=== PATIENT | female | born 1975 | race Caucasian/White ===

== ENCOUNTER 2016-03-27 08:47 | Outpatient (CLI) | payer MEDICAID ==
[2016-03-27] MEDS ORDERED: WATER FOR INJ (PF) 10 ML ONE (10:08)
[2016-03-27] MEDS ORDERED: KINEVAC IV ONE ×3 (10:08→10:20)
[2016-03-27] MEDS ORDERED: WATER FOR INJ (PF) IV ONE (10:15)
[2016-03-27] MEDS ORDERED: WATER FOR INJ (PF) IV SCH (11:00)
--- NOTE | 2016-03-27 12:00 | Nuclear Medicine Report ---
HEPATOBILIARY SCAN: History: Abdominal pain. Comparison: HIDA scan dated 11/08/10. Following the injection of the radionuclide, serial scanning was obtained over the right upper quadrant. Initial imaging of the liver demonstrates a relatively normal activity pattern. Progressive concentration of the radionuclide in the bile ducts, with filling of both the gallbladder and small bowel, is identified within a normal time period. The gallbladder ejection fraction measures 32%. The patient reports these symptoms were reproduced with the infusion of CCK. IMPRESSION: The cystic duct is patent. The gallbladder ejection fraction is borderline decreased measuring 32%. This has decreased from 51% on the previous exam. Symptomatology as described.
== END 2016-03-27 08:48 | disposition home or self-care (01) ==
LOC: NM 08:47
PROVIDERS: ATTEND Family Medicine
DX: R10.11 Right upper quadrant pain (principal)
CPT/HCPCS: 78227; A9537; J2805

== ENCOUNTER 2018-11-06 07:48 | Day surgery (SDC) | payer MEDICAID, OTHER ==
[2018-11-04 11:45] LABS: Hematocrit 37.6 % (30.3-42.9); Hemoglobin 12.6 gm/dl (10.1-14.3); Mean Corpuscular HGB Conc 33 % (30-34); Mean Corpuscular Volume 85 fl (79-97); Platelet Count 253 K/mm3 (140-440); Red Blood Count 4.41 M/mm3 (3.65-5.03)
--- NOTE | 2018-11-04 18:15 | Anesthesia Consultation ---
Anesthesia Consult and Med Hx Date of service: 11/04/18 - Airway Anesthetic Teeth Evaluation: Good ROM Head & Neck: Adequate Mental/Hyoid Distance: Adequate Mallampati Class: Class II Intubation Access Assessment: Good - Pulmonary Exam CTA: Yes - Cardiac Exam Cardiac Exam: RRR - Pre-Operative Health Status ASA Pre-Surgery Classification: ASA2 Proposed Anesthetic Plan: General (Hx of arrhythmia , echo shows normal EF , mild regurg, Stress test done was normal ) - Pulmonary Hx Smoking: Yes (former) Hx Sleep Apnea: Yes (No CPAP) - Central Nervous System Hx Psychiatric Problems: Yes - Gastrointestinal Hx Gastroesophageal Reflux Disease: Yes (Food related) - Hematic Hx Anemia: Yes - Other Systems Hx Alcohol Use: Yes (Occas) Hx Cancer: No Hx Obesity: Yes (BMI= 40)
--- NOTE | 2018-11-06 07:36 | Short Stay Summary ---
Short Stay Documentation Date of service: 11/06/18 Narrative H&P: 43-year-old with a history of dysfunctional uterine bleeding. The patient attempted medical management without resolution of her symptoms. An endometrial biopsy was performed with findings of benign endometrium. Pelvic ultrasound was unremarkable. The patient is elected to undergo surgical management of her abnormal uterine bleeding. - History Principal diagnosis: dysfunctional uterine bleeding Past Medical History: arthritis, other (obesity) Past Surgical History: , Other (tubal ligation; breast reduction) Social history: - Allergies and Medications Current Medications: Allergies No Known Allergies Allergy (Verified 10/30/18 15:38) Home Medications Medication Instructions Recorded Confirmed Last Taken Type Ferrous Sulfate [Feosol] 325 mg PO QDAY 10/30/18 10/30/18 Unknown History busPIRone [Buspar] 10 mg PO DAILY 10/30/18 10/30/18 Unknown History Active Medications Fentanyl (Sublimaze) 100 mcg IV ONCE NR Stop: 11/06/18 23:59 Gabapentin (Neurontin) 300 mg PO PREOP NR Stop: 11/06/18 23:59 Lactated Ringer's (Lactated Ringers) 1,000 mls @ 100 mls/hr IV DIRECT KAROLINA - Physical exam General appearance: no acute distress Integumentary: no rash HEENT: Atraumatic Lungs: Clear to auscultation Breasts: deferred Heart: Regular rate Gastrointestinal: normal Female Genitourinary: deferred Rectal Exam: deferred Extremities: no ischemia - Brief post op/procedure progress note Date of procedure: 11/06/18 Pre-op diagnosis: dysfunctional uterine bleeding Post-op diagnosis: same Procedure: Hysteroscopy Dilatation and curettage Endometrial ablation Anesthesia: GETA Surgeon: CHUCHO MCKINLEY Estimated blood loss: minimal Pathology: list (endometrial curettage) Specimen disposition: to lab Condition: stable - Hospital course Hospital course: The patient was admitted the day of surgery and underwent a hysteroscopy and endometrial ablation. Please see operative note for details of surgery. Her postoperative course was uneventful. - Disposition Condition at discharge: Good Disposition: DC-[id number] TO HOME OR SELFCARE Short Stay Discharge Plan Activity: other (pelvic rest for 2 weeks) Diet: regular Additional Instructions: Scheduled follow-up with Dr. Vázquez in 4 weeks Prescriptions: Ibuprofen [Motrin] 800 mg PO Q8HR PRN #60 tablet PRN Reason: Pain, Mild (1-3) HYDROcodone/APAP 5-325 [[place] 5/325] 1 each PO Q6HR PRN #20 tablet PRN Reason: Pain
[~2018-11-06 07:48] MED LIST: LACTATED RINGERS 1,000 ML IV SCH; NEURONTIN PO NR; SUBLIMAZE IV NR; VERSED IV NR
--- NOTE | 2018-11-06 08:03 | Anesthesia Day of Surgery ---
Anesthesia Day of Surgery - Day of Surgery Patient Examined: Yes Patient H&P Reviewed: Yes Patient is NPO: Yes (PONV-declines scopolamine because doesn't work)
[2018-11-06] MEDS ORDERED: VERSED IV NR (09:00)
[2018-11-06] MEDS ORDERED: DECADRON ONE (10:18)
[2018-11-06] MEDS ORDERED: ZOFRAN ONE ×2 (10:18→12:21)
[2018-11-06] MEDS ORDERED: SUBLIMAZE ONE ×2 (10:18→10:49)
[2018-11-06] MEDS ORDERED: XYLOCAINE MPF 2% ONE (10:18)
[2018-11-06] MEDS ORDERED: DIPRIVAN 10 MG/ML IV ONE (10:18)
[2018-11-06] MEDS ORDERED: ZEMURON IV ONE (10:31)
[2018-11-06] MEDS ORDERED: ROBINUL ONE (11:01)
[2018-11-06] MEDS ORDERED: PHENYLEPHRINE/NS Syringe 1,000 MCG/10 ML IV ONE (11:01)
[2018-11-06] MEDS ORDERED: BLOXIVERZ ONE (11:01)
--- NOTE | 2018-11-06 11:34 | Operative Report ---
Operative Report Operative Report: Date of procedure: 11/06/2018 Pre-operative diagnosis: Dysfunctional uterine bleeding Post-operative diagnosis: Same as above Procedure name(s): Hysteroscopy; dilatation and curettage; endometrial ablation via NovaSure Surgeon: Magalie Loya M.D. Cold Meat Chef: None Anesthesia: General endotracheal anesthesia Findings last endometrial lining with a potential polyp Pathology: Endometrial curettings Indication: 43-year-old 013 with a history dysfunctional uterine bleeding. The patient is failed medical management and elected to undergo surgical management of her symptoms. Procedure The patient was taken to the operating room and given general tracheal anesthesia without complication. The patient was prepped and draped in a normal sterile fashion. A bivalve speculum was placed in the patient's vagina single- tooth tenaculums placed on the anterior lip of the cervix. The cervical os was dilated with graduated dilators. A uterine sound was inserted. The hysteroscope was then placed. Insufflation of the uterine cavity was performed with normal saline. Gen. survey of the uterine cavity revealed a lush endometrial cavity with a possible small polyp. The hysteroscope was then removed. A sharp curettage of the endometrial cavity was performed in the tissue was sent to pathology. The NovaSure device was then inserted. The endometrial length was 6.0 cm and the uterine width was 3.1 cm. The device was engaged and it passed the surveillance of the uterine cavity. The NovaSure device was then deployed with a energy of 102 W that lasted for 1 minutes 21 seconds. The NovaSure device was then removed. The hysteroscope was again reinserted. There was evidence of charring of the endometrial surface. The remainder of the vaginal instruments were then removed atraumatically. The patient was then successfully extubated taken to the recovery room. All sponge laps and needle counts were correct 2.
[2018-11-06] MEDS ORDERED: IBUPROFEN PO PRN (11:46)
[2018-11-06] MEDS ORDERED: ZOFRAN IV ONE (12:23)
[2018-11-06 12:30] VITALS: BP 126/79
--- NOTE | 2018-11-06 14:13 | Post Anesthesia Evaluation ---
- Post Anesthesia Evaluation Patient Participated: Yes Airway Patent: Yes Stable Respiratory Function: Yes Nausea/Vomiting: No Temp > 96.8F: Yes Pain Manageable: Yes Adequeate Hydration: Yes Anesthesia Complications: No Block Receding Appropriately: Not Applicable Patient on Ventilator: No
== END 2018-11-06 13:00 | disposition home or self-care (01) ==
LOC: OR 07:48
PROVIDERS: ATTEND Obstetrics & Gynecology
DX: N93.9 Abnormal uterine and vaginal bleeding, unspecified (principal); G43.909 Migraine, unspecified, not intractable, without status migrainosus; G47.30 Sleep apnea, unspecified; K21.9 Gastro-esophageal reflux disease without esophagitis; E66.9 Obesity, unspecified; F41.9 Anxiety disorder, unspecified; Z79.899 Other long term (current) drug therapy; Z87.891 Personal history of nicotine dependence; Z90.49 Acquired absence of other specified parts of digestive tract; Z68.41 Body mass index [BMI] 40.0-44.9, adult; Z98.51 Tubal ligation status; Z98.891 History of uterine scar from previous surgery; Z72.89 Other problems related to lifestyle; Z98.890 Other specified postprocedural states; Z86.2 Personal history of diseases of the blood and blood-forming organs and certain disorders involving the immune mechanism
CPT/HCPCS: 36415; 58563; 84703; 85027; 88305; J1100; J2250; J2370; J2405; J2704; J2710; J3010; J7120

== ENCOUNTER 2018-11-19 08:20 | Outpatient (CLI) | payer OTHER ==
--- NOTE | 2018-11-20 12:20 | Mammography Report ---
DIGITAL SCREENING MAMMOGRAM WITH CAD, 11/19/2018 INDICATION: Routine screening mammography. History of bilateral reduction mammoplasty. TECHNIQUE: Digital bilateral 2D mammography was obtained in the craniocaudal and mediolateral obliq ue projections. This examination was interpreted with the benefit of Computer-Aided Detection analysi s. COMPARISON: None available. FINDINGS: Breast Density: There are scattered areas of fibroglandular density. There is no evidence of dominant mass, suspicious calcifications or architectural distortion in eithe r breast. Bilateral benign scars and benign calcifications. A left lower inner biopsy clip. IMPRESSION: No mammographic evidence of malignancy. Follow up recommendation: Routine yearly BI-RADS Category 2: Benign. A "normal" or negative report should not discourage follow up or biopsy of a clinically significant f inding. A written summary of these findings will be mailed to the patient. The patient will be entered into a mammography reporting system which will generate a reminder letter for the patient's next appointmen t at the appropriate interval. The [employer] recommends yearly mammograms starting at age 40 and continuing as l lena as a woman is in good health. Breast MRI is recommended for women with an approximate 20-25% or greater lifetime risk of breast cancer, including women with a strong family history of breast or ova yana cancer or who have been treated for Hodgkin's disease. Signer Name: Jaya Dawson MD Signed: 11/20/2018 12:16 PM Workstation Name: [id number]
== END 2018-11-19 08:21 | disposition home or self-care (01) ==
LOC: MAMMO 08:20
PROVIDERS: ATTEND Obstetrics & Gynecology
DX: Z12.31 Encounter for screening mammogram for malignant neoplasm of breast (principal)
CPT/HCPCS: 77067

== ENCOUNTER 2020-05-04 07:17 | Outpatient (CLI) | payer OTHER ==
[2020-05-04 08:19] LABS: Blood Urea Nitrogen 9 mg/dL (7-17)
--- NOTE | 2020-05-04 09:56 | Cat Scan Report ---
CT ABDOMEN AND PELVIS WITH CONTRAST INDICATION / CLINICAL INFORMATION: MAIN. TECHNIQUE: Axial CT images were obtained through the abdomen and pelvis after 60 cc Omni 300 IV contrast. All C T scans at this location are performed using CT dose reduction for ALARA by means of automated exposu re control. COMPARISON: None available. FINDINGS: LOWER CHEST: No significant abnormality. HEPATOBILIARY: No significant abnormality. PANCREAS/SPLEEN/ADRENALS: No significant abnormality. GENITOURINARY: No significant abnormality. GASTROINTESTINAL/MESENTERY: No significant abnormality. RETROPERITONEUM: No significant adenopathy. REPRODUCTIVE ORGANS: No significant abnormality. VASCULAR: No significant abnormality. BODY WALL: 3.0 x 3.2 cm soft tissue lesion in the anterior pelvic wall soft tissues just anterior to the rectus musculature, slightly to the left of midline (axial series 2 image 173). Some spiculations extend from the lesion, and there is no clear fat plane between the adjacent muscular wall. SKELETAL SYSTEM: 1 cm sclerotic focus in the right acetabular roof likely representing a bone island. No acute fracture or aggressive osseous lesion. IMPRESSION: 1. 3 cm soft tissue lesion in the anterior pelvic soft tissues which appears to extend to the muscula r wall, as above. Findings could represent desmoplastic or neoplastic processes and soft tissue sarc yasmin is not excluded. Consider comparison with prior films if available and histologic characterizatio n, as warranted. Signer Name: Angel Ramírez MD Signed: 05/04/2020 9:51 AM Workstation Name: [id number]
== END 2020-05-04 07:18 | disposition home or self-care (01) ==
LOC: CT 07:17
PROVIDERS: ATTEND Surgery
DX: R22.2 Localized swelling, mass and lump, trunk (principal)
CPT/HCPCS: 36415; 74177; 82565; 84520; Q9967

== ENCOUNTER 2020-05-25 08:45 | Outpatient (CLI) | payer OTHER ==
[2020-05-25 09:31] LABS: Basophils % (Auto) 0.6 % (0.0-1.8); Eosinophils # (Auto) 0.4 K/mm3 (0.0-0.4); Eosinophils % (Auto) 4.8 % (0.0-4.3); Hematocrit 40.9 % (30.3-42.9); Hemoglobin 13.9 gm/dl (10.1-14.3); Lymphocytes # (Auto) 2.2 K/mm3 (1.2-5.4); Lymphocytes % (Auto) 27.4 % (13.4-35.0); Mean Corpuscular HGB Conc 34 % (30-34); Mean Corpuscular Volume 90 fl (79-97); Monocytes # (Auto) 0.6 K/mm3 (0.0-0.8); Monocytes % (Auto) 7.3 % (0.0-7.3); Platelet Count 247 K/mm3 (140-440); Red Blood Count 4.52 M/mm3 (3.65-5.03); Red Cell Distribution Width 13.2 % (13.2-15.2)
[2020-05-25 09:44] LABS: Blood Urea Nitrogen 7 mg/dL (7-17); Calcium 9.2 mg/dL (8.4-10.2); Hemolysis Index 14
[2020-05-25 09:49] LABS: BUN/Creatinine Ratio 14
--- NOTE | 2020-05-25 11:50 | Magnetic Resonance Report ---
MR pelvis wo con, MR abdomen wo con INDICATION / CLINICAL INFORMATION: Abdominal wall mass. TECHNIQUE: Multiplanar, multisequence MR images were obtained. COMPARISON: CT abdomen and pelvis 05/04/2020. MRI ABDOMEN: The parenchymal organs are unremarkable in appearance. Negative for abdominal mass, flui d collection or inflammation. The bowel is not dilated or thickened. Changes of previous cholecystectomy. No biliary dilatation. MRI PELVIS: Irregular, spiculated mass anterior abdominal wall just to the left of midline at the lev el the uterus measures 2.8 x 2.1 cm. This is associated with an old scar. No intrapelvic mass, fluid or inflammation. IMPRESSION: 1. Soft tissue lesion left anterior abdominal wall associated with a scar. The most likely etiology i s desmoid tumor or possibly endometriosis. A malignant tumor is thought to be less likely. This lesio n could be percutaneously biopsied if desired. 2. No additional abnormality. Signer Name: Arun Hubbard MD Signed: 05/25/2020 11:45 AM Workstation Name: [id number]
== END 2020-05-25 08:46 | disposition home or self-care (01) ==
LOC: MRI 08:45
PROVIDERS: ATTEND Surgery
DX: R22.2 Localized swelling, mass and lump, trunk (principal)
CPT/HCPCS: 36415; 72195; 74181; 80048; 85025

== ENCOUNTER 2020-06-08 06:03 | Outpatient (CLI) | payer OTHER ==
[2020-06-08] MEDS ORDERED: ONDANSETRON 4 MG/2 ML INJ IV ONE (06:48)
[2020-06-08 07:49] LABS: Basophils # (Auto) 0.1 K/mm3 (0.0-0.1); Basophils % (Auto) 0.8 % (0.0-1.8); Eosinophils # (Auto) 0.4 K/mm3 (0.0-0.4); Eosinophils % (Auto) 5.4 % (0.0-4.3); Hematocrit 34.3 % (30.3-42.9); Hemoglobin 12.1 gm/dl (10.1-14.3); Lymphocytes # (Auto) 2.7 K/mm3 (1.2-5.4); Lymphocytes % (Auto) 34.7 % (13.4-35.0); Mean Corpuscular HGB Conc 35 % (30-34); Mean Corpuscular Volume 91 fl (79-97); Monocytes # (Auto) 0.5 K/mm3 (0.0-0.8); Monocytes % (Auto) 6.9 % (0.0-7.3); Platelet Count 216 K/mm3 (140-440); Red Blood Count 3.77 M/mm3 (3.65-5.03); Red Cell Distribution Width 13.4 % (13.2-15.2)
[2020-06-08 07:58] LABS: INR 1.03 (0.87-1.13)
[2020-06-08 07:59] LABS: Partial Thromboplastin Time 28.2 Sec. (24.2-36.6)
[2020-06-08] MEDS ORDERED: HYDROmorphone 1 MG/1 ML INJ IV ONE (08:00)
[2020-06-08] MEDS ORDERED: SODIUM CHLORIDE 0.9% 500 ML 500 ML ONE (08:09)
[2020-06-08] MEDS ORDERED: SODIUM CHLORIDE 0.9% 500 ML 500 ML IV SCH (09:00)
[2020-06-08] MEDS ORDERED: ONDANSETRON 4 MG/2 ML INJ ONE (09:57)
--- NOTE | 2020-06-08 12:30 | Cat Scan Report ---
CT-GUIDED BIOPSY PELVIS/HIP LEFT INDICATION : Anterior pelvic wall mass. COMPARISON: Previous CT and MRI abdomen pelvis PROCEDURE: The risks (including but not limited to bleeding and infection) and benefits were explain ed to the patient and informed consent was obtained. All CT scans at this location are performed usi ng CT dose reduction for ALARA by means of automated exposure control. A time out procedure was performed. The procedure site was prepped and draped in the usual sterile f ashion and lidocaine was used for local anesthesia. Anxiolysis was accomplished with 1 mg of IV Dilau did and 2 mg of IV Zofran. Using CT guidance, a 17-gauge introducer needle was advanced to the leading edge of a 2.9 x 3.0 cm so ft tissue density mass in the subcutaneous tissues of the anterior pelvic wall. 3 separate 2 cm 18-ga uge core biopsies were obtained for analysis. Pathology was present and deemed the samples adequate. The patient tolerated the procedure well with no complications. IMPRESSION: Successful CT-guided biopsy of the anterior pelvic wall mass. Signer Name: Corey Egan Jr, MD Signed: 06/08/2020 12:25 PM Workstation Name: [id number]
[2020-06-08 14:07] VITALS: BP 142/79
== END 2020-06-08 14:00 | disposition home or self-care (01) ==
LOC: CATHLABREC 06:03
PROVIDERS: ATTEND Surgery
DX: R22.2 Localized swelling, mass and lump, trunk (principal); F17.210 Nicotine dependence, cigarettes, uncomplicated; G43.909 Migraine, unspecified, not intractable, without status migrainosus; G47.30 Sleep apnea, unspecified; K21.9 Gastro-esophageal reflux disease without esophagitis; E66.9 Obesity, unspecified; F41.9 Anxiety disorder, unspecified; D64.9 Anemia, unspecified; Z98.891 History of uterine scar from previous surgery; Z98.890 Other specified postprocedural states; Z72.89 Other problems related to lifestyle; Z79.899 Other long term (current) drug therapy; Z90.49 Acquired absence of other specified parts of digestive tract; Z98.51 Tubal ligation status; Z68.36 Body mass index [BMI] 36.0-36.9, adult
CPT/HCPCS: 20206; 36415; 77012; 85025; 85610; 85730; 88104; 88307; J1170; J2405; J7040

== ENCOUNTER 2021-01-03 10:40 | Outpatient (CLI) | payer OTHER ==
--- NOTE | 2021-01-04 09:25 | Mammography Report ---
DIGITAL SCREENING MAMMOGRAM WITH CAD, 01/03/2021 CLINICAL INFORMATION / INDICATION: Routine screening mammography. TECHNIQUE: Digital bilateral 2D mammography was obtained in the craniocaudal and mediolateral obliqu e projections. This examination was interpreted with the benefit of Computer-Aided Detection analysis . COMPARISON: Prior mammogram 11/19/2018 FINDINGS: Breast Density: There are scattered areas of fibroglandular density. No dominant mass, suspicious calcifications, or architectural distortion in either breast. There is stable benign postsurgical change in the left breast. There has been no significant change c ompared with the prior examination. IMPRESSION: No mammographic evidence of malignancy. Follow up recommendation: Routine yearly BI-RADS Category 2: Benign. A "normal" or negative report should not discourage follow up or biopsy of a clinically significant f inding. A written summary of these findings will be mailed to the patient. The patient will be entered into a mammography reporting system which will generate a reminder letter for the patient's next appointmen t at the appropriate interval. The [employer] recommends yearly mammograms starting at age 40 and continuing as l lena as a woman is in good health. Breast MRI is recommended for women with an approximate 20-25% or greater lifetime risk of breast cancer, including women with a strong family history of breast or ova yana cancer or who have been treated for Hodgkin's disease. Signer Name: Mara Murry MD Signed: 01/04/2021 9:20 AM Workstation Name: [email or web address]
== END 2021-01-03 10:41 | disposition home or self-care (01) ==
LOC: MAMMO 10:40
PROVIDERS: ATTEND Obstetrics & Gynecology
DX: Z12.31 Encounter for screening mammogram for malignant neoplasm of breast (principal)
CPT/HCPCS: 77067